=== PATIENT | male | born 1955 | race African-American/Black ===

== ENCOUNTER 2017-06-14 04:09 | Emergency (ER) | payer MEDICARE, MEDICAID ==
[~2017-06-14] VITALS: Ht 165.1 cm; Wt 68.0 kg
[2017-06-14] MEDS ORDERED: LIDOCAINE 5% PATCH TOP SCH (06:45)
[2017-06-14 06:57] VITALS: BP 160/80
[2017-06-14] MEDS ORDERED: TRAMADOL 50MG TABLET PO ONE (07:00)
== END 2017-06-14 07:15 | disposition home or self-care (01) ==
LOC: ER 04:09
DX: G89.29 Other chronic pain (principal); M54.9 Dorsalgia, unspecified; M54.2 Cervicalgia; I10 Essential (primary) hypertension; M79.605 Pain in left leg; R07.81 Pleurodynia
CPT/HCPCS: 71045; 99283

== ENCOUNTER 2018-07-22 18:35 | Emergency (ER) | payer MEDICARE, MEDICAID ==
[~2018-07-22] VITALS: Ht 170.2 cm; Wt 69.0 kg
[2018-07-22] MEDS ORDERED: SODIUM CHLORIDE 0.9% 1,000 ML IV ONE (21:35)
[2018-07-22] MEDS ORDERED: TRAMADOL 50MG TABLET PO ONE (21:45)
[2018-07-22 22:06] LABS: BASOPHILS % 0.6 % (0.0-2.0); EOSINOPHILS % 3.4 % (0.0-5.0); HEMOGLOBIN. 12.6 g/dL (14.0-18.0); LYMPHOCYTES % 29.7 % (20.0-50.0); MEAN CORPUSCULAR HEMOGLOBIN 23.3 pg (28.0-32.0); MEAN CORPUSCULAR VOLUME 73.6 fL (80.0-94.0); MONOCYTES % 10.2 % (2.0-8.0); NEUTROPHILS % 56.1 % (40.0-76.0); PLATELET 205 x1000/uL (130-400); RED BLOOD CELL COUNT 5.43 mill/uL (4.7-6.1); RED CELL DISTRIBUTION WIDTH 15.8 % (11.6-14.6)
[2018-07-22 22:13] LABS: CHLORIDE 107 mEq/L (98-107); PROTHROMBIN TIME 10.2 sec (9.1-11.1)
[2018-07-22 22:21] LABS: CREATINE KINASE 380 IU/L (39-308)
[2018-07-22 22:59] LABS: CLARITY URINE CLOUDY (CLEAR); COLOR URINE YELLOW (YELLOW); KETONES URINE TRACE (NEGATIVE); LEUKOCYTE ESTERASE URINE 1+ (NEGATIVE); NITRITE URINE NEGATIVE (NEGATIVE); OCCULT BLOOD URINE NEGATIVE (NEGATIVE); PH URINE 5.5 (4.5-8.0); PROTEIN URINE NEGATIVE (NEGATIVE); SPECIFIC GRAVITY URINE 1.039 (1.005-1.030)
[2018-07-22] MEDS ORDERED: CEFTRIAXONE 1 G PREMIX 50 ML IV ONE (23:15)
[2018-07-23] MEDS ORDERED: TRAMADOL 50MG TABLET PO ONE (06:45)
[2018-07-23 13:31] VITALS: BP 138/65
== END 2018-07-23 13:31 | disposition home or self-care (01) ==
LOC: ER 18:35
DX: G47.62 Sleep related leg cramps (principal); N39.0 Urinary tract infection, site not specified; I10 Essential (primary) hypertension; Z86.73 Personal history of transient ischemic attack (TIA), and cerebral infarction without residual deficits; Z98.890 Other specified postprocedural states
CPT/HCPCS: 36415; 80053; 81003; 82550; 83735; 85025; 85610; 93970; 96365; 99284; J0696; J7030

== ENCOUNTER 2019-02-13 02:42 | Emergency (ER) | payer MEDICARE, MEDICAID ==
[~2019-02-13] VITALS: Ht 170.2 cm; Wt 66.0 kg
[2019-02-13 10:45] VITALS: BP 156/89
== END 2019-02-13 10:48 | disposition home or self-care (01) ==
LOC: ER 02:42
DX: F43.9 Reaction to severe stress, unspecified (principal); G47.00 Insomnia, unspecified; Z86.73 Personal history of transient ischemic attack (TIA), and cerebral infarction without residual deficits
CPT/HCPCS: 99283

== ENCOUNTER 2019-03-11 23:44 | Emergency (ER) | payer MEDICARE, MEDICAID ==
[~2019-03-11] VITALS: Ht 170.2 cm; Wt 73.0 kg
[2019-03-12] MEDS ORDERED: SODIUM CHLORIDE 0.9% 1,000 ML IV ONE (00:09)
[2019-03-12 01:05] LABS: BASOPHILS % 0.8 % (0.0-2.0); EOSINOPHILS % 2.5 % (0.0-5.0); HEMATOCRIT. 39.3 % (42.0-52.0); HEMOGLOBIN. 12.4 g/dL (14.0-18.0); LYMPHOCYTES % 25.9 % (20.0-50.0); MEAN CORPUSCULAR HEMOGLOBIN 23.6 pg (28.0-32.0); MEAN CORPUSCULAR VOLUME 74.5 fL (80.0-94.0); MEAN PLATELET VOLUME 8.7 fl (7.4-10.4); MONOCYTES % 11.2 % (2.0-8.0); NEUTROPHILS % 59.6 % (40.0-76.0); PLATELET 201 x1000/uL (130-400); RED BLOOD CELL COUNT 5.27 mill/uL (4.7-6.1); RED CELL DISTRIBUTION WIDTH 16.1 % (11.6-14.6)
[2019-03-12 01:11] LABS: CHLORIDE 111 mEq/L (98-107)
[2019-03-12 01:17] LABS: CLARITY URINE CLOUDY (CLEAR); COLOR URINE YELLOW (YELLOW); KETONES URINE NEGATIVE (NEGATIVE); LEUKOCYTE ESTERASE URINE 2+ (NEGATIVE); NITRITE URINE NEGATIVE (NEGATIVE); OCCULT BLOOD URINE NEGATIVE (NEGATIVE); PH URINE 5.5 (4.5-8.0); PROTEIN URINE TRACE (NEGATIVE); SPECIFIC GRAVITY URINE 1.036 (1.005-1.030)
[2019-03-12] MEDS ORDERED: CEFTRIAXONE 1 G PREMIX 50 ML IV ONE (01:30)
[2019-03-12 20:47] VITALS: BP 192/94
== END 2019-03-12 20:50 | disposition home or self-care (01) ==
LOC: ER 23:44
DX: N30.00 Acute cystitis without hematuria (principal); R10.9 Unspecified abdominal pain; I10 Essential (primary) hypertension; Z59.0 Homelessness; Z86.73 Personal history of transient ischemic attack (TIA), and cerebral infarction without residual deficits
CPT/HCPCS: 36415; 74176; 80053; 81003; 85025; 87086; 96365; 96366; 99284; J7030

== ENCOUNTER 2019-06-13 15:39 | Emergency (ER) | payer MEDICARE, MEDICAID ==
[~2019-06-13] VITALS: Ht 170.2 cm; Wt 63.0 kg
[2019-06-13 18:53] VITALS: BP 148/89
== END 2019-06-13 20:03 | disposition home or self-care (01) ==
LOC: ER 15:39
DX: I10 Essential (primary) hypertension (principal); Z86.73 Personal history of transient ischemic attack (TIA), and cerebral infarction without residual deficits
CPT/HCPCS: 93005; 99283

== ENCOUNTER 2019-06-15 17:03 | Inpatient (IN) | payer MEDICARE, MEDICAID ==
[~2019-06-15] VITALS: Ht 165.1 cm; Wt 53.5 kg
[2019-06-15] MEDS ORDERED: SODIUM CHLORIDE 0.9% 1,000 ML IV ONE (19:04)
[2019-06-15 19:32] LABS: BASOPHILS % 0.8 % (0.0-2.0); EOSINOPHILS % 0.7 % (0.0-5.0); HEMATOCRIT. 42.3 % (42.0-52.0); HEMOGLOBIN. 13.2 g/dL (14.0-18.0); LYMPHOCYTES % 24.7 % (20.0-50.0); MEAN CORPUSCULAR VOLUME 73.6 fL (80.0-94.0); MEAN PLATELET VOLUME 8.1 fl (7.4-10.4); MONOCYTES % 10.6 % (2.0-8.0); NEUTROPHILS % 63.2 % (40.0-76.0); PLATELET 337 x1000/uL (130-400); RED BLOOD CELL COUNT 5.74 mill/uL (4.7-6.1); RED CELL DISTRIBUTION WIDTH 15.8 % (11.6-14.6)
[2019-06-15 19:39] LABS: CHLORIDE 108 mEq/L (98-107)
[2019-06-15 19:41] LABS: INR 1.1; PROTHROMBIN TIME 10.8 sec (9.6-11.0)
[2019-06-15 19:42] LABS: ETHANOL BLOOD < 10 mg/dL
[2019-06-16] VITALS (8 sets, daily range): BP systolic 117–178; BP diastolic 63–106
[2019-06-16] MEDS ORDERED: CLONIDINE 0.1MG TABLET PO PRN (03:45)
[2019-06-16 06:29] LABS: CLARITY URINE CLEAR (CLEAR); COLOR URINE YELLOW (YELLOW); KETONES URINE TRACE (NEGATIVE); LEUKOCYTE ESTERASE URINE TRACE (NEGATIVE); NITRITE URINE NEGATIVE (NEGATIVE); OCCULT BLOOD URINE NEGATIVE (NEGATIVE); PROTEIN URINE NEGATIVE (NEGATIVE); SPECIFIC GRAVITY URINE 1.011 (1.005-1.030)
[2019-06-16 06:53] LABS: *BARBITURATES SCREEN URINE NEGATIVE (NEGATIVE)
[2019-06-16 06:54] LABS: *AMPHETAMINES SCREEN URINE NEGATIVE (NEGATIVE); *BENZODIAZEPINES SCREEN URINE NEGATIVE (NEGATIVE); *COCAINE SCREEN URINE NEGATIVE (NEGATIVE); METHADONE URINE SCREEN NEGATIVE (NEGATIVE); OPIATES URINE SCREEN NEGATIVE (NEGATIVE); PHENCYCLIDINE URINE SCREEN NEGATIVE (NEGATIVE)
[2019-06-16 06:55] LABS: CANNABINOID URINE SCREEN PRESUMTIVE POSITIVE (NEGATIVE)
[2019-06-16] MEDS: ENOXAPARIN 40MG/0.4ML SYR SUBCUT SCH (09:08)
[2019-06-16 11:50] LABS: BASOPHILS % 0.4 % (0.0-2.0); EOSINOPHILS % 0.8 % (0.0-5.0); HEMATOCRIT. 39.2 % (42.0-52.0); HEMOGLOBIN. 12.7 g/dL (14.0-18.0); LYMPHOCYTES % 18.8 % (20.0-50.0); MEAN CORPUSCULAR HEMOGLOBIN 24.1 pg (28.0-32.0); MEAN CORPUSCULAR VOLUME 74.8 fL (80.0-94.0); MEAN PLATELET VOLUME 8.5 fl (7.4-10.4); MONOCYTES % 7.5 % (2.0-8.0); NEUTROPHILS % 72.5 % (40.0-76.0); PLATELET 324 x1000/uL (130-400); RED BLOOD CELL COUNT 5.24 mill/uL (4.7-6.1); RED CELL DISTRIBUTION WIDTH 15.8 % (11.6-14.6)
[2019-06-16 11:57] LABS: CHLORIDE 107 mEq/L (98-107)
[2019-06-16 12:08] LABS: LDL CHOLESTEROL 68 mg/dL (5-100)
[2019-06-16 12:10] LABS: HDL CHOLESTEROL 50 mg/dL (40-59)
[2019-06-17] VITALS (7 sets, daily range): BP systolic 131–168; BP diastolic 74–96
[2019-06-17] MEDS ORDERED: HYDROCODONE/ACETAMINOPHEN 5/325MG TABLET PO PRN (00:45)
[2019-06-17] MEDS ORDERED: GUAIFENESIN-DM 200MG-20MG/10ML UDC PO NR (00:45)
[2019-06-17] MEDS: ENOXAPARIN 40MG/0.4ML SYR SUBCUT SCH (09:45)
[2019-06-17] MEDS ORDERED: BACL-141 PO (09:47)
[2019-06-17 11:25] LABS: BASOPHILS % 0.5 % (0.0-2.0); EOSINOPHILS % 0.6 % (0.0-5.0); HEMATOCRIT. 40.6 % (42.0-52.0); HEMOGLOBIN. 12.9 g/dL (14.0-18.0); LYMPHOCYTES % 24.6 % (20.0-50.0); MEAN CORPUSCULAR HEMOGLOBIN 23.7 pg (28.0-32.0); MEAN CORPUSCULAR VOLUME 74.4 fL (80.0-94.0); MEAN PLATELET VOLUME 8.6 fl (7.4-10.4); MONOCYTES % 10.2 % (2.0-8.0); NEUTROPHILS % 64.1 % (40.0-76.0); PLATELET 298 x1000/uL (130-400); RED BLOOD CELL COUNT 5.47 mill/uL (4.7-6.1); RED CELL DISTRIBUTION WIDTH 16.1 % (11.6-14.6)
[2019-06-17 11:35] LABS: CHLORIDE 105 mEq/L (98-107)
[2019-06-17] MEDS: BACLOFEN 10MG TABLET PO SCH ×2 (13:25→21:01)
[2019-06-17] MEDS: ZOLPIDEM TARTRATE 5MG TABLET PO PRN (22:25)
[2019-06-18] VITALS: BP 120/70
[2019-06-18 04:00] VITALS: BP 114/80
[2019-06-18] MEDS: BACLOFEN 10MG TABLET PO SCH ×3 (05:31→21:08)
[2019-06-18 08:00] VITALS: BP 127/92
[2019-06-18] MEDS: ENOXAPARIN 40MG/0.4ML SYR SUBCUT SCH (08:14)
[2019-06-18 08:23] LABS: BASOPHILS % 0.8 % (0.0-2.0); HEMATOCRIT. 42.4 % (42.0-52.0); HEMOGLOBIN. 13.3 g/dL (14.0-18.0); LYMPHOCYTES % 23.4 % (20.0-50.0); MEAN CORPUSCULAR HEMOGLOBIN 23.5 pg (28.0-32.0); MEAN CORPUSCULAR VOLUME 74.7 fL (80.0-94.0); MEAN PLATELET VOLUME 8.7 fl (7.4-10.4); MONOCYTES % 10.5 % (2.0-8.0); NEUTROPHILS % 64.3 % (40.0-76.0); PLATELET 277 x1000/uL (130-400); RED BLOOD CELL COUNT 5.67 mill/uL (4.7-6.1); RED CELL DISTRIBUTION WIDTH 16.2 % (11.6-14.6)
[2019-06-18 08:46] LABS: CHLORIDE 107 mEq/L (98-107)
[2019-06-18 12:00] VITALS: BP 137/88
[2019-06-18] MEDS ORDERED: GUAIFENESIN 200MG/10ML SUGAR FREE UDC PO PRN (13:00)
[2019-06-18] MEDS ORDERED: GUAI-641 MT (13:06)
[2019-06-18] MEDS ORDERED: PSYL575P22 MT (13:06)
[2019-06-18 16:00] VITALS: BP 149/91
[2019-06-18 20:00] VITALS: BP 144/87
[2019-06-18] MEDS: ZOLPIDEM TARTRATE 5MG TABLET PO PRN (21:08)
[2019-06-19] VITALS: BP 121/81
[2019-06-19 04:00] VITALS: BP 113/66
[2019-06-19] MEDS: BACLOFEN 10MG TABLET PO SCH (05:31)
[2019-06-19 08:00] VITALS: BP 147/81
[2019-06-19] MEDS: ENOXAPARIN 40MG/0.4ML SYR SUBCUT SCH (08:25)
[2019-06-19 09:29] VITALS: BP 147/81
[2019-06-19 12:00] VITALS: BP 120/92
== END 2019-06-19 12:18 | DRG 392 ==
LOC: ER 17:03 → EDBEDREQSVC 22:15 → EDBEDREQ 22:53 → EDBEDREQTM 22:53 → ENRESERV 23:33 → 6EST 06-16 00:15
PROVIDERS: ADMIT Internal Medicine; ATTEND Emergency Medicine
DX: A08.4 Viral intestinal infection, unspecified (principal); I10 Essential (primary) hypertension; D50.9 Iron deficiency anemia, unspecified; S50.312A Abrasion of left elbow, initial encounter; R29.6 Repeated falls; W05.0XXA Fall from non-moving wheelchair, initial encounter; S80.812A Abrasion, left lower leg, initial encounter; S80.811A Abrasion, right lower leg, initial encounter; Y93.89 Activity, other specified; Y99.8 Other external cause status; Z99.3 Dependence on wheelchair; Z87.440 Personal history of urinary (tract) infections; Z86.73 Personal history of transient ischemic attack (TIA), and cerebral infarction without residual deficits; Z98.1 Arthrodesis status; Y92.098 Other place in other non-institutional residence as the place of occurrence of the external cause
CPT/HCPCS: 36415; 71045; 80048; 80053; 80061; 80305; 80320; 81003; 83605; 84443; 84484; 85025; 87015; 87045; 87427; 87449; 87493; 89055; 93005; 93923; 96360; 96361; 96372; 97162; 97530; 99285; J1650; J7030; G0480

== ENCOUNTER 2019-06-27 12:31 | Emergency (ER) | payer MEDICARE, MEDICAID ==
[~2019-06-27] VITALS: Ht 170.2 cm; Wt 86.0 kg
[~2019-06-27 12:31] MED LIST: BACL-141 PO; GUAI-641 MT; PSYL575P22 MT
[2019-06-27 13:02] VITALS: BP 134/79
== END 2019-06-27 15:46 | disposition home or self-care (01) ==
LOC: ER 12:31
DX: Z11.1 Encounter for screening for respiratory tuberculosis (principal); I10 Essential (primary) hypertension; F32.9 Major depressive disorder, single episode, unspecified; Z86.73 Personal history of transient ischemic attack (TIA), and cerebral infarction without residual deficits
CPT/HCPCS: 71045; 99283

== ENCOUNTER 2019-07-03 14:57 | Emergency (ER) | payer MEDICARE, MEDICAID ==
[~2019-07-03] VITALS: Ht 170.2 cm; Wt 62.0 kg
[2019-07-03 15:04] VITALS: BP 126/91
[2019-07-03] MEDS ORDERED: ACETAMINOPHEN 325MG TABLET PO STA (18:03)
== END 2019-07-03 18:50 | disposition left against medical advice (07) ==
LOC: ER 14:57
DX: S49.92XA Unspecified injury of left shoulder and upper arm, initial encounter (principal); M25.562 Pain in left knee; I10 Essential (primary) hypertension; Z79.899 Other long term (current) drug therapy; W18.30XA Fall on same level, unspecified, initial encounter; Y93.89 Activity, other specified; Y92.009 Unspecified place in unspecified non-institutional (private) residence as the place of occurrence of the external cause; Y99.8 Other external cause status
CPT/HCPCS: 73030; 73560; 99283

== ENCOUNTER 2019-07-04 05:24 | Emergency (ER) | payer MEDICARE, MEDICAID ==
[~2019-07-04] VITALS: Ht 170.2 cm; Wt 62.0 kg
[2019-07-04] MEDS ORDERED: ACETAMINOPHEN 325MG TABLET PO ONE (07:00)
[2019-07-05 09:49] VITALS: BP 146/85
== END 2019-07-05 09:49 | disposition home or self-care (01) ==
LOC: ER 05:24
DX: Z04.89 Encounter for examination and observation for other specified reasons (principal); F32.9 Major depressive disorder, single episode, unspecified; I10 Essential (primary) hypertension; Z86.73 Personal history of transient ischemic attack (TIA), and cerebral infarction without residual deficits; Z59.0 Homelessness; Z98.1 Arthrodesis status; Z98.890 Other specified postprocedural states; Z79.899 Other long term (current) drug therapy
CPT/HCPCS: 99284

== ENCOUNTER 2021-01-10 13:33 | Inpatient (IN) | payer MEDICARE, MEDICAID ==
[~2021-01-10] VITALS: Ht 170.2 cm; Wt 84.4 kg
[2021-01-10] MEDS ORDERED: ACETAMINOPHEN 325MG TABLET PO ONE (14:15)
[2021-01-10 14:53] LABS: CLARITY URINE CLEAR (CLEAR); COLOR URINE YELLOW (YELLOW); KETONES URINE NEGATIVE (NEGATIVE); LEUKOCYTE ESTERASE URINE 1+ (NEGATIVE); NITRITE URINE NEGATIVE (NEGATIVE); OCCULT BLOOD URINE NEGATIVE (NEGATIVE); PROTEIN URINE NEGATIVE (NEGATIVE); SPECIFIC GRAVITY URINE 1.022 (1.005-1.030)
[2021-01-10] MEDS ORDERED: CEFU500T41 MT (16:32)
[2021-01-10] MEDS ORDERED: ACET-2708 MT (16:32)
[2021-01-11] MEDS ORDERED: CEFTRIAXONE 1 G PREMIX 50 ML IV ONE (09:45)
[2021-01-11] MEDS ORDERED: SODIUM CHLORIDE 0.9% 1,000 ML IV ONE (09:45)
[2021-01-11 10:03] LABS: BASOPHILS % 0.6 % (0.0-2.0); EOSINOPHILS % 1.3 % (0.0-5.0); HEMATOCRIT. 44.5 % (42.0-52.0); HEMOGLOBIN. 14.3 g/dL (14.0-18.0); LYMPHOCYTES % 18.1 % (20.0-50.0); MEAN CORPUSCULAR HEMOGLOBIN 23.6 pg (28.0-32.0); MEAN CORPUSCULAR VOLUME 73.6 fL (80.0-94.0); MEAN PLATELET VOLUME 8.9 fl (7.4-10.4); MONOCYTES % 7.8 % (2.0-8.0); NEUTROPHILS % 72.2 % (40.0-76.0); PLATELET 205 x1000/uL (130-400); RED BLOOD CELL COUNT 6.04 mill/uL (4.7-6.1); RED CELL DISTRIBUTION WIDTH 15.5 % (11.6-14.6)
[2021-01-11 10:11] LABS: CHLORIDE 106 mEq/L (98-107)
[2021-01-11] MEDS ORDERED: ACETAMINOPHEN 325MG TABLET PO PRN (14:00)
[2021-01-11] MEDS ORDERED: ONDANSETRON HCL 4MG/2ML INJ IV PRN (14:00)
[2021-01-11] MEDS ORDERED: AMLODIPINE 10MG TABLET PO NR (18:00)
[2021-01-12] MEDS ORDERED: BACL20TA PO (00:56)
[2021-01-12] MEDS ORDERED: METH500T6 PO (00:56)
[2021-01-12] MEDS ORDERED: SERT50TA12 PO (00:56)
[2021-01-12] MEDS ORDERED: AMLO5TAB88 PO (00:56)
[2021-01-12] MEDS ORDERED: GABA-532 PO (00:56)
[2021-01-12] MEDS ORDERED: TRAM50TA3 PO (00:56)
[2021-01-12 01:31] VITALS: BP 144/55
[2021-01-12 04:00] VITALS: BP 141/89
[2021-01-12] MEDS ORDERED: CEFTRIAXONE 1 G PREMIX 50 ML IV SCH (09:00)
[2021-01-12] MEDS: TAMSULOSIN HCL 0.4MG SR CAPSULE PO SCH (09:44)
[2021-01-12] MEDS: AMLODIPINE 10MG TABLET PO SCH (09:45)
[2021-01-12 11:00] VITALS: BP 161/90
[2021-01-12] MEDS: CEFTRIAXONE 1,000 MG in DEXTROSE 5% WATER 50 ML IV SCH (11:40)
[2021-01-12 16:36] VITALS: BP 139/83
[2021-01-12 20:00] VITALS: BP 154/86
[2021-01-12] MEDS: ZOLPIDEM TARTRATE 5MG TABLET PO PRN (20:45)
[2021-01-12] MEDS ORDERED: TRAMADOL 50MG TABLET PO PRN (20:45)
[2021-01-13 00:41] VITALS: BP 141/78
[2021-01-13 04:00] VITALS: BP 112/82
[2021-01-13 08:00] VITALS: BP 139/79
[2021-01-13] MEDS: TAMSULOSIN HCL 0.4MG SR CAPSULE PO SCH (09:05)
[2021-01-13] MEDS: AMLODIPINE 10MG TABLET PO SCH (09:05)
[2021-01-13] MEDS: CEFTRIAXONE 1,000 MG in DEXTROSE 5% WATER 50 ML IV SCH (11:07)
[2021-01-13 12:00] VITALS: BP 121/75
[2021-01-13 16:00] VITALS: BP 118/76
[2021-01-13] MEDS: CYCLOBENZAPRINE 10MG TABLET PO PRN (17:49)
[2021-01-13 20:26] VITALS: BP 115/73
[2021-01-13] MEDS: ZOLPIDEM TARTRATE 5MG TABLET PO PRN (21:14)
[2021-01-13] MEDS ORDERED: NALOXONE HCL 0.4MG/ML VIAL IV PRN (21:45)
[2021-01-14 02:43] VITALS: BP 147/88
[2021-01-14] MEDS: CYCLOBENZAPRINE 10MG TABLET PO PRN (04:11)
[2021-01-14 08:00] VITALS: BP 122/80
[2021-01-14] MEDS: AMLODIPINE 10MG TABLET PO SCH (09:25)
[2021-01-14] MEDS: TAMSULOSIN HCL 0.4MG SR CAPSULE PO SCH (09:25)
[2021-01-14] MEDS: CEFTRIAXONE 1,000 MG in DEXTROSE 5% WATER 50 ML IV SCH (10:00)
[2021-01-14 12:00] VITALS: BP 130/74
[2021-01-14 14:55] VITALS: BP 130/74
[2021-01-14] MEDS ORDERED: CYCLOBENZAPRINE 10MG TABLET PO PRN (18:15)
[2021-01-14 20:00] VITALS: BP 125/86
[2021-01-14] MEDS ORDERED: LACTULOSE 20G/30ML UDC PO PRN (21:15)
[2021-01-15] MEDS: AMLODIPINE 10MG TABLET PO SCH (09:00)
[2021-01-15] MEDS: TAMSULOSIN HCL 0.4MG SR CAPSULE PO SCH (09:00)
== END 2021-01-15 09:15 | DRG 690 ==
LOC: ER 13:33 → ENRESERV 01-11 22:12 → 7WST 01-11 23:52 → 6WST 01-12 08:04 → 6EST 01-12 22:15
PROVIDERS: ADMIT Internal Medicine; ATTEND Internal Medicine
DX: N30.01 Acute cystitis with hematuria (principal); I10 Essential (primary) hypertension; F32.9 Major depressive disorder, single episode, unspecified; E86.0 Dehydration; Z20.822 Contact with and (suspected) exposure to COVID-19; N40.1 Benign prostatic hyperplasia with lower urinary tract symptoms; Z59.0 Homelessness; Z99.3 Dependence on wheelchair; Z86.73 Personal history of transient ischemic attack (TIA), and cerebral infarction without residual deficits; Z79.899 Other long term (current) drug therapy
CPT/HCPCS: 36415; 80053; 81003; 85025; 96365; 97162; 99285; J0696; J7030; J7040; J7060; U0003; U0005

== ENCOUNTER 2021-08-14 15:15 | Emergency (ER) | payer MEDICARE, MEDICAID ==
[~2021-08-14] VITALS: Ht 177.8 cm; Wt 68.0 kg
[~2021-08-14 15:15] MED LIST changes: +ACET-2708 MT; +AMLO5TAB88 PO; +BACL20TA PO; +CEFU500T41 MT; +GABA-532 PO; +METH-773 PO; +SERT-422 PO; +TRAM50TA3 PO
[2021-08-14 16:20] LABS: CHLORIDE 106 mEq/L (98-107)
[2021-08-14 16:26] LABS: BASOPHILS % 0.5 % (0.0-2.0); ETHANOL BLOOD < 10 mg/dL; HEMATOCRIT. 41.7 % (42.0-52.0); HEMOGLOBIN. 13.4 g/dL (14.0-18.0); LYMPHOCYTES % 12.8 % (20.0-50.0); MEAN CORPUSCULAR HEMOGLOBIN 23.5 pg (28.0-32.0); MEAN CORPUSCULAR VOLUME 73.1 fL (80.0-94.0); MEAN PLATELET VOLUME 8.8 fl (7.4-10.4); MONOCYTES % 5.6 % (2.0-8.0); NEUTROPHILS % 80.1 % (40.0-76.0); PLATELET 207 x1000/uL (130-400); RED BLOOD CELL COUNT 5.71 mill/uL (4.7-6.1)
[2021-08-14 19:21] VITALS: BP 148/62
[2021-08-14 21:19] LABS: CLARITY URINE CLEAR (CLEAR); COLOR URINE YELLOW (YELLOW); KETONES URINE NEGATIVE (NEGATIVE); LEUKOCYTE ESTERASE URINE NEGATIVE (NEGATIVE); NITRITE URINE NEGATIVE (NEGATIVE); OCCULT BLOOD URINE NEGATIVE (NEGATIVE); PH URINE 7.5 (4.5-8.0); PROTEIN URINE NEGATIVE (NEGATIVE); SPECIFIC GRAVITY URINE 1.008 (1.005-1.030); UROBILINOGEN URINE 0.2 E.U./dL (0.2-1.0)
[2021-08-14 21:30] LABS: *AMPHETAMINES SCREEN URINE NEGATIVE (NEGATIVE); *BARBITURATES SCREEN URINE NEGATIVE (NEGATIVE); *BENZODIAZEPINES SCREEN URINE NEGATIVE (NEGATIVE); *COCAINE SCREEN URINE NEGATIVE (NEGATIVE); METHADONE URINE SCREEN NEGATIVE (NEGATIVE); OPIATES URINE SCREEN NEGATIVE (NEGATIVE)
[2021-08-14 21:31] LABS: CANNABINOID URINE SCREEN PRESUMTIVE POSITIVE (NEGATIVE); PHENCYCLIDINE URINE SCREEN NEGATIVE (NEGATIVE)
[2021-08-14] MEDS ORDERED: CEFU500T41 MT (22:05)
[2021-08-14] MEDS ORDERED: CEFTRIAXONE 1 G PREMIX 50 ML IV ONE (22:15)
== END 2021-08-14 15:46 | disposition home or self-care (01) ==
LOC: ER 15:15
DX: R30.0 Dysuria (principal); N39.0 Urinary tract infection, site not specified; R53.1 Weakness; R41.0 Disorientation, unspecified
CPT/HCPCS: 36415; 71045; 80053; 80305; 80320; 81003; 84484; 85025; 99285; G0480

== ENCOUNTER 2021-12-03 01:24 | Inpatient (IN) | payer MEDICARE, MEDICAID ==
[~2021-12-03] VITALS: Ht 170.2 cm; Wt 70.8 kg
[2021-12-03] MEDS ORDERED: MORPHINE SULFATE 4 MG/ML CPJ (NOT FOR IM USE) IV STA (06:19)
[2021-12-03 06:58] LABS: BASOPHILS % 0.4 % (0.0-2.0); EOSINOPHILS % 1.6 % (0.0-5.0); HEMATOCRIT. 42.1 % (42.0-52.0); HEMOGLOBIN. 13.5 g/dL (14.0-18.0); LYMPHOCYTES % 14.2 % (20.0-50.0); MEAN CORPUSCULAR HEMOGLOBIN 24.2 pg (28.0-32.0); MEAN CORPUSCULAR VOLUME 75.6 fL (80.0-94.0); MONOCYTES % 9.9 % (2.0-8.0); NEUTROPHILS % 73.9 % (40.0-76.0); PLATELET 201 x1000/uL (130-400); RED BLOOD CELL COUNT 5.57 mill/uL (4.7-6.1); RED CELL DISTRIBUTION WIDTH 14.6 % (11.6-14.6)
[2021-12-03 07:01] LABS: CHLORIDE 105 mEq/L (98-107)
[2021-12-03] MEDS ORDERED: ASPIRIN 325MG EC TABLET PO ONE (07:30)
[2021-12-03] MEDS ORDERED: ONDANSETRON HCL 4MG/2ML INJ IV PRN (13:15)
[2021-12-03] MEDS ORDERED: REGADENOSON 0.4 MG/5 ML IV NR (14:45)
[2021-12-03 16:50] VITALS: BP 157/71
[2021-12-03 18:08] VITALS: BP 157/71
[2021-12-03 20:00] VITALS: BP 135/56
[2021-12-04 00:05] VITALS: BP 150/83
[2021-12-04] MEDS ORDERED: DIPHENHYDRAMINE 50MG CAPSULE PO PRN (00:30)
[2021-12-04] MEDS: ZOLPIDEM TARTRATE 5MG TABLET PO PRN ×2 (00:43→21:03)
[2021-12-04 04:00] VITALS: BP 139/73
[2021-12-04] MEDS: DIPHENHYDRAMINE HCL/ZINC ACET 28 GM CREAM TOP PRN ×2 (09:25→21:03)
[2021-12-04] MEDS: ASPIRIN 81MG TABLET PO SCH (09:26)
[2021-12-04] MEDS: AMLODIPINE 5MG TABLET PO SCH (09:26)
[2021-12-04 12:00] VITALS: BP 130/93
[2021-12-04 16:00] VITALS: BP 148/77
[2021-12-04 20:00] VITALS: BP 159/75
[2021-12-04] MEDS: DIPHENHYDRAMINE 25MG CAPSULE PO PRN (21:03)
[2021-12-05] VITALS: BP 138/75
[2021-12-05] MEDS: DIPHENHYDRAMINE HCL/ZINC ACET 28 GM CREAM TOP PRN ×3 (02:31→21:11)
[2021-12-05 04:00] VITALS: BP 140/76
[2021-12-05 08:00] VITALS: BP 132/87
[2021-12-05] MEDS: AMLODIPINE 5MG TABLET PO SCH (09:03)
[2021-12-05] MEDS: ASPIRIN 81MG TABLET PO SCH (09:03)
[2021-12-05 12:00] VITALS: BP 128/76
[2021-12-05 18:25] VITALS: BP 133/77
[2021-12-05 20:10] VITALS: BP 125/78
[2021-12-05] MEDS: ZOLPIDEM TARTRATE 5MG TABLET PO PRN (21:11)
[2021-12-05] MEDS: DIPHENHYDRAMINE 25MG CAPSULE PO PRN (21:11)
[2021-12-06] VITALS: BP 106/42
[2021-12-06 07:43] VITALS: BP 141/82
[2021-12-06] MEDS: AMLODIPINE 5MG TABLET PO SCH (08:02)
[2021-12-06] MEDS: ASPIRIN 81MG TABLET PO SCH (08:02)
[2021-12-06 11:45] VITALS: BP 134/85
[2021-12-06 16:00] VITALS: BP 126/74
[2021-12-06 20:00] VITALS: BP 135/80
[2021-12-06] MEDS: DIPHENHYDRAMINE 25MG CAPSULE PO PRN (21:41)
[2021-12-06] MEDS: ZOLPIDEM TARTRATE 5MG TABLET PO PRN (21:45)
[2021-12-07] VITALS: BP 140/95
[2021-12-07] MEDS: ACETAMINOPHEN 325MG TABLET PO PRN (05:43)
[2021-12-07] MEDS: DIPHENHYDRAMINE 25MG CAPSULE PO PRN (05:46)
[2021-12-07 08:00] VITALS: BP 127/71
[2021-12-07] MEDS: ASPIRIN 81MG TABLET PO SCH (09:27)
[2021-12-07] MEDS: AMLODIPINE 5MG TABLET PO SCH (09:27)
[2021-12-07 12:00] VITALS: BP 135/80
[2021-12-07 16:00] VITALS: BP 130/83
[2021-12-07 20:00] VITALS: BP 132/81
[2021-12-07] MEDS: ZOLPIDEM TARTRATE 5MG TABLET PO PRN (21:49)
[2021-12-08] VITALS: BP 128/78
[2021-12-08] MEDS: DIPHENHYDRAMINE HCL/ZINC ACET 28 GM CREAM TOP PRN ×3 (02:38→20:45)
[2021-12-08 04:00] VITALS: BP 134/82
[2021-12-08 08:00] VITALS: BP 110/73
[2021-12-08] MEDS: ASPIRIN 81MG TABLET PO SCH (09:49)
[2021-12-08] MEDS: DIPHENHYDRAMINE 25MG CAPSULE PO PRN ×2 (09:49→20:46)
[2021-12-08] MEDS: AMLODIPINE 5MG TABLET PO SCH (09:50)
[2021-12-08 12:00] VITALS: BP 131/73
[2021-12-08 16:00] VITALS: BP 111/72
[2021-12-08 20:00] VITALS: BP 132/83
[2021-12-08] MEDS: ZOLPIDEM TARTRATE 5MG TABLET PO PRN (20:44)
[2021-12-08] MEDS: ACETAMINOPHEN 325MG TABLET PO PRN (20:49)
[2021-12-09] VITALS (7 sets, daily range): BP systolic 101–179; BP diastolic 60–135
[2021-12-09] MEDS: ASPIRIN 81MG TABLET PO SCH (09:30)
[2021-12-09] MEDS: AMLODIPINE 5MG TABLET PO SCH (09:30)
[2021-12-09] MEDS: DIPHENHYDRAMINE 25MG CAPSULE PO PRN (20:40)
[2021-12-09] MEDS: ZOLPIDEM TARTRATE 5MG TABLET PO PRN (20:40)
[2021-12-09] MEDS: ACETAMINOPHEN 325MG TABLET PO PRN (20:40)
[2021-12-09] MEDS: DIPHENHYDRAMINE HCL/ZINC ACET 28 GM CREAM TOP PRN (20:41)
[2021-12-10] VITALS: BP 142/60
[2021-12-10 08:00] VITALS: BP 131/80
[2021-12-10] MEDS: ASPIRIN 81MG TABLET PO SCH (08:10)
[2021-12-10] MEDS: AMLODIPINE 5MG TABLET PO SCH (08:11)
[2021-12-10 12:00] VITALS: BP 117/75
[2021-12-10 16:00] VITALS: BP 138/59
[2021-12-10 20:00] VITALS: BP 110/65
[2021-12-10] MEDS: ZOLPIDEM TARTRATE 5MG TABLET PO PRN (20:25)
[2021-12-10] MEDS: DIPHENHYDRAMINE 25MG CAPSULE PO PRN (20:25)
[2021-12-10] MEDS: DIPHENHYDRAMINE HCL/ZINC ACET 28 GM CREAM TOP PRN (20:25)
[2021-12-10] MEDS: ACETAMINOPHEN 325MG TABLET PO PRN (20:25)
[2021-12-11] VITALS: BP 142/60
[2021-12-11 04:00] VITALS: BP 138/85
[2021-12-11 08:00] VITALS: BP 136/79
[2021-12-11] MEDS: AMLODIPINE 5MG TABLET PO SCH (08:47)
[2021-12-11] MEDS: ASPIRIN 81MG TABLET PO SCH (08:47)
[2021-12-11 12:00] VITALS: BP 138/61
[2021-12-11 16:00] VITALS: BP 131/70
[2021-12-11 20:00] VITALS: BP 131/97
[2021-12-11] MEDS: ZOLPIDEM TARTRATE 5MG TABLET PO PRN (21:05)
[2021-12-11] MEDS: DIPHENHYDRAMINE HCL/ZINC ACET 28 GM CREAM TOP PRN (21:05)
[2021-12-11] MEDS: ACETAMINOPHEN 325MG TABLET PO PRN (21:05)
[2021-12-12] VITALS: BP 126/67
[2021-12-12 08:00] VITALS: BP 130/82
[2021-12-12] MEDS: AMLODIPINE 5MG TABLET PO SCH (09:29)
[2021-12-12] MEDS: ASPIRIN 81MG TABLET PO SCH (09:29)
[2021-12-12 12:00] VITALS: BP 145/99
[2021-12-12 15:04] VITALS: BP 145/95
[2021-12-12 16:00] VITALS: BP 123/78
== END 2021-12-12 19:56 | disposition left against medical advice (07) | DRG 206 ==
LOC: ER 01:24 → 7WST 08:35 → EDBEDREQ 08:52 → 6EST 12-06 14:14
PROVIDERS: ADMIT Internal Medicine; ATTEND Internal Medicine
DX: M94.0 Chondrocostal junction syndrome [Tietze] (principal); I16.0 Hypertensive urgency; I10 Essential (primary) hypertension; F32.A Depression, unspecified; Z20.822 Contact with and (suspected) exposure to COVID-19; Z86.73 Personal history of transient ischemic attack (TIA), and cerebral infarction without residual deficits; Z79.899 Other long term (current) drug therapy; Z99.3 Dependence on wheelchair; R53.1 Weakness
CPT/HCPCS: 36415; 71045; 78452; 80053; 83880; 84484; 85025; 87426; 93005; 93017; 93306; 97116; 97162; 97166; 97530; 97535; 99285; A9500; J2270; J2785; Q0163

== ENCOUNTER 2021-12-18 18:09 | Emergency (ER) | payer MEDICARE, MEDICAID ==
[~2021-12-18] VITALS: Ht 170.2 cm; Wt 69.0 kg
[2021-12-18 18:15] VITALS: BP 134/85
[2021-12-18 21:58] LABS: CHLORIDE 104 mEq/L (98-107)
[2021-12-18 22:06] LABS: BASOPHILS % 0.5 % (0.0-2.0); EOSINOPHILS % 4.1 % (0.0-5.0); HEMATOCRIT. 39.5 % (42.0-52.0); HEMOGLOBIN. 12.6 g/dL (14.0-18.0); LYMPHOCYTES % 17.5 % (20.0-50.0); MEAN CORPUSCULAR HEMOGLOBIN 24.1 pg (28.0-32.0); MEAN CORPUSCULAR VOLUME 75.7 fL (80.0-94.0); MEAN PLATELET VOLUME 8.8 fl (7.4-10.4); MONOCYTES % 11.4 % (2.0-8.0); NEUTROPHILS % 66.5 % (40.0-76.0); PLATELET 220 x1000/uL (130-400); RED BLOOD CELL COUNT 5.21 mill/uL (4.7-6.1); RED CELL DISTRIBUTION WIDTH 14.7 % (11.6-14.6)
[2021-12-19] MEDS ORDERED: ACETAMINOPHEN 325MG TABLET PO ONE (01:00)
[2021-12-19] MEDS ORDERED: [UNRECOGNIZED DRUG - CODE] MT (03:11)
== END 2021-12-19 04:44 | disposition home or self-care (01) ==
LOC: ER 18:09
DX: R07.9 Chest pain, unspecified (principal); R10.9 Unspecified abdominal pain; F32.9 Major depressive disorder, single episode, unspecified; I10 Essential (primary) hypertension; Z86.73 Personal history of transient ischemic attack (TIA), and cerebral infarction without residual deficits; Z98.890 Other specified postprocedural states; Z20.822 Contact with and (suspected) exposure to COVID-19
CPT/HCPCS: 36415; 74176; 80053; 83690; 85025; 87426; 99284; C9803; 99283